=== PATIENT | female | born 1970 | race Two or more races ===

== ENCOUNTER 2019-05-18 09:20 | Day surgery (SDC) | payer OTHER ==
[~2019-05-18 09:20] MED LIST: FOLTX TABLET1 EACH PO; MAGNESIUM400 MG PO; MILLIPRED5 MG; PREMARIN0.45 MG; PROVENTIL HFA6.7 GM IH; SYMBICORT 16010.2 GM IH; [UNRECOGNIZED DRUG - OTHER] PO
== END 2019-05-18 18:10 | disposition home or self-care (01) ==
LOC: CIR.AMB 09:20
DX: N94.19 Other specified dyspareunia (principal)

== ENCOUNTER → 2020-09-25 | Outpatient (CLI) | payer OTHER | END | disposition home or self-care (01) | LOC: OFIC 805 08:25 | PROVIDERS: ATTEND Otolaryngology Otology & Neurotology | DX: J34.3 Hypertrophy of nasal turbinates (principal); J00 Acute nasopharyngitis [common cold]; J34.89 Other specified disorders of nose and nasal sinuses ==

== ENCOUNTER 2020-10-23 13:53 | Outpatient (CLI) | payer OTHER | END 2020-10-23 14:56 | disposition home or self-care (01) | LOC: OFIC 805 13:53 | PROVIDERS: ATTEND Otolaryngology Otology & Neurotology | DX: J34.89 Other specified disorders of nose and nasal sinuses (principal); J00 Acute nasopharyngitis [common cold]; J34.3 Hypertrophy of nasal turbinates ==